=== PATIENT | female | born 1950 | race Caucasian/White ===

== ENCOUNTER 2021-10-03 10:26 | Day surgery (SDC) | payer MEDICARE ==
[~2021-10-03] VITALS: Ht 175.3 cm; Wt 113.2 kg
[~2021-10-03 10:26] MED LIST: AMLO10 PO; ATOR40TA PO; Aspir 8181 MG PO; CARV25 PO; CYCL10 PO; HYDCHL12.5 PO; Hydroxyurea500 MG PO; LEVOTHYROXINE PO; ZOLP10 PO
--- NOTE | 2021-10-03 12:13 | NUR ---
10/03/21 1213 Andreea Marques BUPIVACAINE 0.5% 30 MLS MIXED W/ EPI 0.15 PER ORDER TO MAKE BUPIVACAINE 0.5% 1:200,000 FOR INJECTION AT OPSITE BY DR MEANS.
--- NOTE | 2021-10-03 14:11 | NUR ---
10/03/21 1411 JENAE TEJEDA PT NO LONGER NAUSEAOUS, VERBALIZES UNDERSTANDING TO DC INSTRUCTIONS. PT DENIES ANY PAIN. DC TO GO HOME WITH
== END 2021-10-03 14:11 | disposition home or self-care (01) ==
LOC: ORSCSDS 10:26
PROVIDERS: Podiatrist Foot & Ankle Surgery
PROC: 0QSN04Z Reposition Right Metatarsal with Internal Fixation Device, Open Approach (ICD-10-PCS; principal; 2021-10-03 12:00)
PROC: 0SNP0ZZ Release Right Toe Phalangeal Joint, Open Approach (ICD-10-PCS; principal; 2021-10-03 12:00)
DX: M20.11 Hallux valgus (acquired), right foot (principal); M20.41 Other hammer toe(s) (acquired), right foot; E03.9 Hypothyroidism, unspecified; I10 Essential (primary) hypertension; E78.5 Hyperlipidemia, unspecified; Z87.891 Personal history of nicotine dependence; Z79.899 Other long term (current) drug therapy
CPT/HCPCS: C1713; C1769; J0171; J0690; J1100; J1885; J2250; J2405; J2704; J2765; J3010; J7120